=== PATIENT | male | born 1950 | race African-American/Black ===

== ENCOUNTER 2016-06-27 22:52 | Emergency (ER) | payer BC ==
[~2016-06-27] VITALS: Ht 167.6 cm; Wt 74.4 kg
[~2016-06-27 22:52] MED LIST: AMLODIPINE BESY10 MG PO; CELEXA10 MG PO; LAMICTAL XR100 MG PO; LAMICTAL XR50 MG PO; LIPITOR 20 MG T20 M1 PO; LIPITOR40 MG PO; NORCO 5-325 TA1 EACH PO; NORFLEX100 MG PO
[2016-06-27 23:44] VITALS: BP 128/88
== END 2016-06-27 23:45 | disposition home or self-care (01) ==
LOC: ER 22:52
DX: R68.83 Chills (without fever) (principal); T42.6X5A Adverse effect of other antiepileptic and sedative-hypnotic drugs, initial encounter; Z86.011 Personal history of benign neoplasm of the brain; Z88.0 Allergy status to penicillin; Z88.8 Allergy status to other drugs, medicaments and biological substances; Z87.891 Personal history of nicotine dependence; Y92.89 Other specified places as the place of occurrence of the external cause